=== PATIENT | female | born 1990 | race Caucasian/White ===

== ENCOUNTER 2019-08-30 09:08 | Emergency (ER) | payer MEDICAID ==
[~2019-08-30] VITALS: Ht 152.4 cm; Wt 86.2 kg
[2019-08-30 09:37] VITALS: Ht 152.4 cm; Wt 86.2 kg
[2019-08-30 13:13] VITALS: BP 130/71
== END 2019-08-30 13:13 | disposition home or self-care (01) ==
LOC: ED 09:08
DX: N39.0 Urinary tract infection, site not specified (principal); Z98.890 Other specified postprocedural states
CPT/HCPCS: 87804; J2405; J7030